=== PATIENT | male | born 1975 ===

== ENCOUNTER 2018-10-03 19:53 | Observation (INO) | payer OTHER ==
[2018-10-03] MEDS ORDERED: Sodium Chloride 0.9% 1,000 ML IV STA (20:31)
[2018-10-03 21:09] LABS: BASO # 0.03 K/mm3 (0.0-2.0); BASO % 0.3 % (0.0-3.0); EOS % 0.2 % (1.5-5.0); GRAN # 6.72 (1.4-6.5); GRAN % 74.7 % (50.0-68.0); HEMOGLOBIN 15.7 g/dL (14.0-18.0); LYMPH # 1.4 (1.2-3.4); LYMPH % 15.1 % (22.0-35.0); MEAN CELL VOLUME 87.4 fl (80.0-105.0); MEAN CORPUSCULAR HEMOGLOBIN 30.1 pg (25.0-35.0); MEAN CORPUSCULAR HGB CONC 34.4 g/dl (31.0-37.0); MEAN PLATELET VOLUME 10.2 fl (7.0-11.0); MONO # 0.9 (0.1-0.6); MONO % 9.7 % (1.0-6.0); RBC 5.22 10^6/uL (3.5-6.1); RED CELL DISTRIBUTION WIDTH 12.7 % (11.5-14.5)
[2018-10-03 21:16] LABS: ALB/GLOB RATIO 1.2 (1.1-1.8); ALBUMIN 4.3 g/dL (3.0-4.8); ALT/SGPT 29 U/L (7-56); AST/SGOT 33 U/L (17-59); BLOOD UREA NITROGEN 13 mg/dL (7-21); CALCIUM 9.4 mg/dL (8.4-10.5); GFR NON-AFRICAN AMERICAN > 60; LIPASE 36 U/L (23-300)
[2018-10-03 21:18] LABS: INR 1.19; PARTIAL THROMBOPLASTIN TIME 30.6 Seconds (25.1-36.5); PROTHROMBIN TIME 13.6 SECONDS (9.4-12.5)
[2018-10-03] MEDS ORDERED: Iohexol 350 MG/100 ML VIAL ONE (21:47)
--- NOTE | 2018-10-03 22:00 | ED PDOC ---
Arrival/HPI - General Historian: Patient - History of Present Illness Narrative History of Present Illness (Text): 10/03/18 21:57 43-year-old male presents today with a 2-day history of nausea vomiting and diarrhea with severe lower abdominal pain. Patient states the pain is int ermittent and sharp and localized to the left lower quadrant of the abdomen. Patient with subjective fevers at home. Patient states he has not been able to eat or drink due to the nausea and vomiting. Patient denies dizziness or weakness. No chest pain or shortness of breath. He denies any urinary symptoms. Denies testicular pain. Patient denies sick contacts. Patient describes a cramping sensation to the left flank. Patient states he is noticed bright red blood per rectum. Time/Duration: Other (2 days) Symptom Onset: Sudden Symptom Course: Intermittent Quality: Stabbing, Cramping Severity Level: Moderate <Verna Kincaid - Last Filed: 10/04/18 01:28> <Gabriel Hernandez - Last Filed: 10/04/18 01:30> - General Chief Complaint: Abdominal Pain Time Seen by Provider: 10/03/18 20:01 Past Medical History - Provider Review Nursing Documentation Reviewed: Yes - Travel History Have you recently traveled outside [place] w/in the past 3 mons?: No - Cardiac Hx Cardiac Disorders: No - Pulmonary Hx Respiratory Disorders: No - Neurological Hx Neurological Disorder: No - HEENT Hx HEENT Disorder: No - Renal Hx Renal Disorder: No - Endocrine/Metabolic Hx Endocrine Disorders: No - Hematological/Oncological Hx Blood Disorders: No - Integumentary Hx Dermatological Disorder: No - Musculoskeletal/Rheumatological Hx Musculoskeletal Disorders: No - Gastrointestinal Hx Gastrointestinal Disorders: No - Genitourinary/Gynecological Hx Genitourinary Disorders: No - Psychiatric Hx Psychophysiologic Disorder: Yes Hx Anxiety: Yes Hx Substance Use: Yes <Verna Kincaid - Last Filed: 10/04/18 01:28> Family/Social History - Physician Review Nursing Documentation Reviewed: Yes Family/Social History: Unknown Family HX Smoking Status: Never Smoked Hx Alcohol Use: No Hx Substance Use: Yes Substance used: Occasional Marijuana <Verna Kincaid - Last Filed: 10/04/18 01:28> Allergies/Home Meds <Verna Kincaid - Last Filed: 10/04/18 01:28> <Gabriel Hernandez Filed: 10/04/18 01:30> Allergies/Adverse Reactions: Allergies No Known Allergies Allergy (Verified 10/03/18 20:09) Home Medications: Home Meds Medication Instructions Recorded Confirmed No Known Home Med 10/03/18 10/03/18 Review of Systems - Review of Systems Constitutional: Fevers. absent: Fatigue Respiratory: absent: SOB, Cough Cardiovascular: absent: Chest Pain, Palpitations Gastrointestinal: Abdominal Pain, Diarrhea, Nausea, Vomiting. absent: Constipation Genitourinary Male: absent: Dysuria, Frequency, Hematuria Musculoskeletal: Back Pain. absent: Arthralgias, Neck Pain Skin: absent: Rash, Pruritis Neurological: absent: Headache, Dizziness Psychiatric: absent: Anxiety, Depression <Verna Kincaid Filed: 10/04/18 01:28> Physical Exam Vital Signs Reviewed: Yes Vital Signs Temp Pulse Resp BP Pulse Ox 10/03/18 20:10 98.4 F 89 18 122/81 98 Temperature: Afebrile Blood Pressure: Normal Pulse: Regular Respiratory Rate: Normal Appearance: Positive for: Well-Appearing, Non-Toxic, Comfortable Pain Distress: None Mental Status: Positive for: Alert and Oriented X 3 - Systems Exam Head: Present: Atraumatic Mouth: Present: Moist Mucous Membranes Neck: Present: Normal Range of Motion Respiratory/Chest: Present: Clear to Auscultation, Good Air Exchange. No: Respiratory Distress, Accessory Muscle Use Cardiovascular: Present: Regular Rate and Rhythm, Normal S1, S2. No: Murmurs Abdomen: Present: Tenderness (+ llq and rlq tenderness. ), Guarding. No: Distention, Peritoneal Signs Rectal: Present: Occult Blood, Normal Rectal Tone. No: Rectal Tenderness, Gross Blood, Melena, Fissures Back: Present: Normal Inspection. No: Midline Tenderness, Paraspinal Tenderness Upper Extremity: Present: Normal ROM Lower Extremity: Present: Normal ROM Neurological: Present: GCS=15, Speech Normal Skin: Present: Warm, Dry, Normal Color. No: Rashes Psychiatric: Present: Alert, Oriented x 3 <Verna Kincaid Filed: 10/04/18 01:28> Vital Signs Temp Pulse Resp BP Pulse Ox 10/03/18 20:10 98.4 F 89 18 122/81 98 <Gabriel Hernandez Filed: 10/04/18 01:30> Medical Decision Making ED Course and Treatment: 10/03/18 22:01 Patient is nontoxic well appearing with stable vital signs presenting with abdominal pain, nausea/vomiting/diarrhea and heme positive stools. CBC wnl CMP wnl Lipase wnl CAT scan: FINDINGS: LUNG BASES: The lung bases appear clear. No pleural effusions are seen. LIVER: Unremarkable. GALLBLADDER AND BILE DUCTS: The gallbladder appears within normal limits. No radioopaque gallstones are seen. No biliary ductal dilatation is evident. PANCREAS: Unremarkable. SPLEEN: Unremarkable. ADRENAL GLANDS: Unremarkable. KIDNEYS, URETERS, AND BLADDER: The kidneys appear within normal limits. There is no hydronephrosis or hydroureter. No urinary calculi are seen. STOMACH AND BOWEL: Thick walled fluid filled duodenum and loops of jejunum as well as ileum compatible with enteritis. Thick walled fluid filled colon is noted with involvement of all segments compatible with diffuse pancolitis. Infectious and inflammatory etiologies are considered. APPENDIX: No evidence of acute appendicitis on CT examination. PERITONEUM: No free fluid. No free air. LYMPH NODES: No lymphadenopathy is evident. REPRODUCTIVE: Unremarkable as visualized. VASCULATURE: No evidence of abdominal aortic aneurysm. BONES: No aggressive appearing osseous lesion. No acute osseous pathology evident. MISCELLANEOUS: Small fat-containing umbilical hernia is noted. Small amount of fluid in the pelvis. IMPRESSION: 1. Enterocolitis. Infectious and inflammatory etiologies are considered. 2. Small fat-containing umbilical hernia is noted. 3. Small amount of fluid in the pelvis. 10/03/18 23:43 pt with intermittent lower abdominal cramping with pancolitis on CT with left shift. blood cultures pending pt started on rocephin and flagyl. case discussed with dr. burns. accepts admission all results discussed with patient in depth; impression: pancolitis, heme positive stools admit meds/surg - Lab Interpretations Lab Results: 10/03/18 20:59 10/03/18 20:59 Lab Results 10/03/18 20:59: WBC 9.0, RBC 5.22, Hgb 15.7, Hct 45.6, MCV 87.4, MCH 30.1, MCHC 34.4, RDW 12.7, Plt Count 187, MPV 10.2, Gran % 74.7 H, Lymph % (Auto) 15.1 L, Barry % (Auto) 9.7 H, Eos % (Auto) 0.2 L, Baso % (Auto) 0.3, Gran # 6.72 H, Lymph # (Auto) 1.4, [place] # (Auto) 0.9 H, Eos # (Auto) 0.0, Baso # (Auto) 0.03 10/03/18 20:59: Sodium 136, Potassium 3.6, Chloride 103, Carbon Dioxide 25, Ani on Gap 13, BUN 13, Creatinine 0.9, Est GFR ( Amer) > 60, Est GFR (Non-Af Amer) > 60, Random Glucose 92, Calcium 9.4, Total Bilirubin 0.6, AST 33, ALT 29, Alkaline Phosphatase 68, Total Protein 7.9, Albumin 4.3, Globulin 3.6, Albumin/Globulin Ratio 1.2, Lipase 36 10/03/18 20:59: PT 13.6 H, INR 1.19, APTT 30.6 - RAD Interpretation Radiology Orders: 10/03/18 20:30 ABD & PELVIS IV CONTRAST ONLY [CT] Stat - Medication Orders Current Medication Orders: Discontinued Medications Sodium Chloride (Sodium Chloride 0.9%) 1,000 mls @ 999 mls/hr IV .Q1H1M STA Stop: 10/03/18 21:31 Last Admin: 10/03/18 21:03 Dose: 999 mls/hr eMAR Start Stop Document 10/03/18 21:03 EQ (Rec: 10/03/18 21:03 EQ [id number]) Intravenous Solution Start Date 10/03/18 Start Time 21:03 <Verna Kincaid - Last Filed: 10/04/18 01:28> - Lab Interpretations Lab Results: 10/03/18 20:59 10/03/18 20:59 Lab Results 10/03/18 21:00: Blood Type Pending, Antibody Screen Pending, BBK History Checked No verified bt 10/03/18 20:59: WBC 9.0, RBC 5.22, Hgb 15.7, Hct 45.6, MCV 87.4, MCH 30.1, MCHC 34.4, RDW 12.7, Plt Count 187, MPV 10.2, Gran % 74.7 H, Lymph % (Auto) 15.1 L, [place] % (Auto) 9.7 H, Eos % (Auto) 0.2 L, Baso % (Auto) 0.3, Gran # 6.72 H, Lymph # (Auto) 1.4, [place] # (Auto) 0.9 H, Eos # (Auto) 0.0, Baso # (Auto) 0.03 10/03/18 20:59: Sodium 136, Potassium 3.6, Chloride 103, Carbon Dioxide 25, Anion Gap 13, BUN 13, Creatinine 0.9, Est GFR ( Amer) > 60, Est GFR (Non- Af Amer) > 60, Random Glucose 92, Calcium 9.4, Total Bilirubin 0.6, AST 33, ALT 29, Alkaline Phosphatase 68, Total Protein 7.9, Albumin 4.3, Globulin 3.6, Albumin/Globulin Ratio 1.2, Lipase 36 10/03/18 20:59: PT 13.6 H, INR 1.19, APTT 30.6 - RAD Interpretation Radiology Orders: 10/03/18 20:30 ABD & PELVIS IV CONTRAST ONLY [CT] Stat - Medication Orders Current Medication Orders: Discontinued Medications Sodium Chloride (Sodium Chloride 0.9%) 1,000 mls @ 999 mls/hr IV .Q1H1M STA Stop: 10/03/18 21:31 Last Admin: 10/03/18 21:03 Dose: 999 mls/hr eMAR Start Stop Document 10/03/18 21:03 EQ (Rec: 10/03/18 21:03 EQ [id number]) Intravenous Solution Start Date 10/03/18 Start Time 21:03 <Gabriel Hernandez - Last Filed: 10/04/18 01:30> - PA / NITRO WORKER / Resident Statement ELENI has reviewed & agrees with the documentation as recorded. ELENI has examined the patient and agrees with the treatment plan. <Gabriel Hernandez - Last Filed: 10/04/18 01:30> Disposition/Present on Arrival - Present on Arrival Any Indicators Present on Arrival: No History of DVT/PE: No History of Uncontrolled Diabetes: No Urinary Catheter: No History of Decub. Ulcer: No History Surgical Site Infection Following: None - Disposition Have Diagnosis and Disposition been Completed?: Yes Disposition Time: 22:45 Patient Plan: Observation <Verna Kincaid - Last Filed: 10/04/18 01:28> <Gabriel Hernandez - Last Filed: 10/04/18 01:30> - Disposition Diagnosis: Pancolitis, Heme + stool Disposition: HOSPITALIZED Patient Problems: Current Active Problems Problem Status Onset Heme + stool Acute Pancolitis Acute Condition: FAIR
[2018-10-04] MEDS ORDERED: cefTRIAXone 1 gm 1 GM/100 ML BAG IVPB STA (00:24)
[2018-10-04] MEDS ORDERED: metroNIDAZOLE IV 500 mg/100 ml 500 MG/100 ML BAG IVPB STA ×2 (00:24→00:58)
[2018-10-04] MEDS ORDERED: Morphine 2 mg/ml ISec IVP PRN (01:12)
--- NOTE | 2018-10-04 01:35 | CP.PCM.HP ---
<Akshat Arias - Last Filed: 10/04/18 05:58> History of Present Illness - History of Present Illness History of Present Illness: Akshat Arias, PGY1 Hospital H&P This is a 43 year old male with PMH of anxiety presenting to the hospital for 2 day history of abdominal pain. Pain is located in B/L lower abdominal area, rated 10/10 at worst, sharp, radiates to the legs, associated with subjective fever, chills, nausea, several episodes of non bloody vomiting and 3 episodes of bloody diarrhea. He says blood is bright blood and he noticed when wiping. Patient denies exacerbating and alleviating factors. He denies having similar symptoms in the past. Last bowel movement was before arrival to ED. Last meal was oatmeal and turkey sandwhich on previous afternoon. He admits to recent increase in stress at work. He denies any rectal trauma. He also denies CP, SOB, back pain, headaches, cough, numbness, tingling, swelling, hematemesis, urinary complaints, recent sickness, sick contacts at home, trauma, and lifestyle change including diet and weight. 12 point ROS noted here, otherwise unremarkable. Patient returned from trip in [place] during last week of July. PMD: none PMH: anxiety Med: unknown anxiety medication, takes as needed on rare occasions SH: denies smoking and drinking. Admits to occasional marijuana use. Sx: denies surgeries All: NKDA FH: DM. Denies FH of colon cancer, ulcerative colitis, Crohn's Present on Admission - Present on Admission Any Indicators Present on Admission: No Past Patient History - Past Social History Smoking Status: Never Smoked - CARDIAC Hx Cardiac Disorders: No - PULMONARY Hx Respiratory Disorders: No - NEUROLOGICAL Hx Neurological Disorder: No - HEENT Hx HEENT Problems: No - RENAL Hx Chronic Kidney Disease: No - ENDOCRINE/METABOLIC Hx Endocrine Disorders: No - HEMATOLOGICAL/ONCOLOGICAL Hx Blood Disorders: No - INTEGUMENTARY Hx Dermatological Problems: No - MUSCULOSKELETAL/RHEUMATOLOGICAL Hx Musculoskeletal Disorders: No - GASTROINTESTINAL Hx Gastrointestinal Disorders: No - GENITOURINARY/GYNECOLOGICAL Hx Genitourinary Disorders: No - PSYCHIATRIC Hx Psychophysiologic Disorder: Yes Hx Anxiety: Yes Hx Substance Use: Yes - SURGICAL HISTORY Hx Surgeries: No Meds Allergies/Adverse Reactions: Allergies Allergy/AdvReac Type Severity Reaction Status Date / Time No Known Allergies Allergy Verified 10/03/18 20:09 Physical Exam - Constitutional Appears: No Acute Distress - Head Exam Head Exam: ATRAUMATIC, NORMAL INSPECTION - Eye Exam Eye Exam: EOMI Pupil Exam: PERRL - ENT Exam ENT Exam: Mucous Membranes Dry - Respiratory Exam Respiratory Exam: Clear to Auscultation Bilateral, NORMAL BREATHING PATTERN. absent: Accessory Muscle Use, Wheezes, Respiratory Distress - Cardiovascular Exam Cardiovascular Exam: REGULAR RHYTHM, +S1, +S2. absent: Tachycardia - GI/Abdominal Exam GI & Abdominal Exam: Normal Bowel Sounds, Soft. absent: Firm, Guarding Additional comments: LLQ tenderness appreciated to deep palpation. Cruz, rovsing, obturator sign's are negative. - Rectal Exam Additional comments: FOBT positive for blood. Rectal exam does not reveal any masses or lesions - Extremities Exam Extremities exam: Positive for: normal inspection, pedal pulses present. Negative for: calf tenderness - Back Exam Back exam: NORMAL INSPECTION. absent: CVA tenderness (L), CVA tenderness (R) - Neurological Exam Neurological exam: Alert, Oriented x3 - Skin Skin Exam: Normal Color, Warm Results - Vital Signs Recent Vital Signs: Last Vital Signs Temp 98.9 F 10/04/18 00:04 Pulse 69 10/04/18 00:04 Resp 18 10/04/18 00:04 BP 129/80 10/04/18 00:04 Pulse Ox 100 10/04/18 00:04 - Labs Result Diagrams: 10/03/18 20:59 10/03/18 20:59 Labs: Laboratory Results - last 24 hr 10/03/18 10/03/18 10/03/18 20:59 20:59 20:59 WBC 9.0 RBC 5.22 Hgb 15.7 Hct 45.6 MCV 87.4 MCH 30.1 MCHC 34.4 RDW 12.7 Plt Count 187 MPV 10.2 Gran % 74.7 H Lymph % (Auto) 15.1 L [place] % (Auto) 9.7 H Eos % (Auto) 0.2 L Baso % (Auto) 0.3 Gran # 6.72 H Lymph # (Auto) 1.4 [place] # (Auto) 0.9 H Eos # (Auto) 0.0 Baso # (Auto) 0.03 PT 13.6 H INR 1.19 APTT 30.6 Sodium 136 Potassium 3.6 Chloride 103 Carbon Dioxide 25 Anion Gap 13 BUN 13 Creatinine 0.9 Est GFR ( Amer) > 60 Est GFR (Non-Af Amer) > 60 Random Glucose 92 Calcium 9.4 Total Bilirubin 0.6 AST 33 ALT 29 Alkaline Phosphatase 68 Total Protein 7.9 Albumin 4.3 Globulin 3.6 Albumin/Globulin Ratio 1.2 Lipase 36 Blood Type Antibody Screen BBK History Checked 10/03/18 21:00 WBC RBC Hgb Hct MCV MCH MCHC RDW Plt Count MPV Gran % Lymph % (Auto) [place] % (Auto) Eos % (Auto) Baso % (Auto) Gran # Lymph # (Auto) [place] # (Auto) Eos # (Auto) Baso # (Auto) PT INR APTT Sodium Potassium Chloride Carbon Dioxide Anion Gap BUN Creatinine Est GFR ( Amer) Est GFR (Non-Af Amer) Random Glucose Calcium Total Bilirubin AST ALT Alkaline Phosphatase Total Protein Albumin Globulin Albumin/Globulin Ratio Lipase Blood Type O POSITIVE Antibody Screen Negative BBK History Checked No verified bt Assessment & Plan - Assessment and Plan (Free Text) Assessment: This is a 43 year old male with PMH of anxiety presenting to the hospital for 2 day history of abdominal pain. Plan: Abdominal pain -CTAP showed pancolitis. F/u official read -working up infectious vs inflammatory etiology -afebrile, WBC umremarkable with granulocyte shift -procalc pending -blood, stool culture pending -ova/parasite, lactoferrin, fecal leukocytes pending -flagyl, rocephin day 1 -NS 125 -ESR, CRP pending -p-ANCA, ASCA pending (IBD serology) -zofran prn, morphine prn -vitals q4 -GI on consult, Dr. Vasquez PPX/Diet -SCD and pepcid -NPO Patient seen and case discussed with attending, Dr. Roach <Jaclyn Roach - Last Filed: 10/04/18 19:04> Results - Vital Signs Recent Vital Signs: Last Vital Signs Temp 98 F 10/04/18 15:53 Pulse 69 10/04/18 15:53 Resp 16 10/04/18 15:53 BP 108/62 10/04/18 15:53 Pulse Ox 99 10/04/18 15:53 - Labs Result Diagrams: 10/04/18 07:00 10/04/18 07:00 Labs: Laboratory Results - last 24 hr 10/03/18 10/03/18 10/03/18 20:59 20:59 20:59 WBC 9.0 RBC 5.22 Hgb 15.7 Hct 45.6 MCV 87.4 MCH 30.1 MCHC 34.4 RDW 12.7 Plt Count 187 MPV 10.2 Gran % 74.7 H Lymph % (Auto) 15.1 L [place] % (Auto) 9.7 H Eos % (Auto) 0.2 L Baso % (Auto) 0.3 Gran # 6.72 H Lymph # (Auto) 1.4 [place] # (Auto) 0.9 H Eos # (Auto) 0.0 Baso # (Auto) 0.03 ESR PT 13.6 H INR 1.19 APTT 30.6 Sodium 136 Potassium 3.6 Chloride 103 Carbon Dioxide 25 Anion Gap 13 BUN 13 Creatinine 0.9 Est GFR ( Amer) > 60 Est GFR (Non-Af Amer) > 60 Random Glucose 92 Calcium 9.4 Total Bilirubin 0.6 AST 33 ALT 29 Alkaline Phosphatase 68 C-Reactive Protein Total Protein 7.9 Albumin 4.3 Globulin 3.6 Albumin/Globulin Ratio 1.2 Lipase 36 Procalcitonin TSH 3rd Generation Urine Color Urine Appearance Urine pH Ur Specific [place] Urine Protein Urine Glucose (UA) Urine Ketones Urine Blood Urine Nitrate Urine Bilirubin Urine Urobilinogen Ur Leukocyte Esterase Stool Occult Blood Blood Type Antibody Screen BBK History Checked 10/03/18 10/04/18 10/04/18 21:00 05:00 07:00 WBC 7.7 RBC 4.54 Hgb 13.1 L D Hct 39.9 L MCV 87.9 MCH 28.9 MCHC 32.8 RDW 12.8 Plt Count 170 MPV 10.3 Gran % 64.4 Lymph % (Auto) 21.6 L [place] % (Auto) 11.8 H Eos % (Auto) 1.8 Baso % (Auto) 0.4 Gran # 4.94 Lymph # (Auto) 1.7 [place] # (Auto) 0.9 H Eos # (Auto) 0.1 Baso # (Auto) 0.03 ESR 5 PT INR APTT Sodium Potassium Chloride Carbon Dioxide Anion Gap BUN Creatinine Est GFR ( Amer) Est GFR (Non-Af Amer) Random Glucose Calcium Total Bilirubin AST ALT Alkaline Phosphatase C-Reactive Protein Total Protein Albumin Globulin Albumin/Globulin Ratio Lipase Procalcitonin TSH 3rd Generation Urine Color Straw Urine Appearance Clear Urine pH 6.5 Ur Specific [place] <= 1.005 Urine Protein Negative Urine Glucose (UA) Negative Urine Ketones Negative Urine Blood Negative Urine Nitrate Negative Urine Bilirubin Negative Urine Urobilinogen 0.2 Ur Leukocyte Esterase Negative Stool Occult Blood Blood Type O POSITIVE Antibody Screen Negative BBK History Checked No verified bt 10/04/18 10/04/18 10/04/18 07:00 07:00 07:00 WBC RBC Hgb Hct MCV MCH MCHC RDW Plt Count MPV Gran % Lymph % (Auto) [place] % (Auto) Eos % (Auto) Baso % (Auto) Gran # Lymph # (Auto) [place] # (Auto) Eos # (Auto) Baso # (Auto) ESR PT INR APTT Sodium 137 Potassium 3.4 L Chloride 106 Carbon Dioxide 26 Anion Gap 8 L BUN 12 Creatinine 1.0 Est GFR ( Amer) > 60 Est GFR (Non-Af Amer) > 60 Random Glucose 83 Calcium 8.3 L Total Bilirubin 0.3 AST 29 ALT 31 Alkaline Phosphatase 53 C-Reactive Protein 30.60 H Total Protein 6.4 Albumin 3.3 Globulin 3.1 Albumin/Globulin Ratio 1.1 Lipase Procalcitonin 0.42 TSH 3rd Generation 5.93 H Urine Color Urine Appearance Urine pH Ur Specific [place] Urine Protein Urine Glucose (UA) Urine Ketones Urine Blood Urine Nitrate Urine Bilirubin Urine Urobilinogen Ur Leukocyte Esterase Stool Occult Blood Blood Type Antibody Screen BBK History Checked 10/04/18 14:43 WBC RBC Hgb Hct MCV MCH MCHC RDW Plt Count MPV Gran % Lymph % (Auto) [place] % (Auto) Eos % (Auto) Baso % (Auto) Gran # Lymph # (Auto) [place] # (Auto) Eos # (Auto) Baso # (Auto) ESR PT INR APTT Sodium Potassium Chloride Carbon Dioxide Anion Gap BUN Creatinine Est GFR ( Amer) Est GFR (Non-Af Amer) Random Glucose Calcium Total Bilirubin AST ALT Alkaline Phosphatase C-Reactive Protein Total Protein Albumin Globulin Albumin/Globulin Ratio Lipase Procalcitonin TSH 3rd Generation Urine Color Urine Appearance Urine pH Ur Specific [place] Urine Protein Urine Glucose (UA) Urine Ketones Urine Blood Urine Nitrate Urine Bilirubin Urine Urobilinogen Ur Leukocyte Esterase Stool Occult Blood Positive H Blood Type Antibody Screen BBK History Checked Attending/Attestation - Attestation I have personally seen and examined this patient.: Yes I have fully participated in the care of the patient.: Yes I have reviewed all pertinent clinical information: Yes
[2018-10-04] MEDS: Sodium Chloride 0.9% 1,000 ML IV SCH ×2 (02:10→17:30)
[2018-10-04 05:53] LABS: PH,URINE 6.5 (4.7-8.0); URINE BILIRUBIN NEGATIVE (NEGATIVE); URINE BLOOD NEGATIVE (NEGATIVE); URINE GLUCOSE (UA) NEGATIVE (NEGATIVE); URINE LEUKOCYTE ESTERASE NEGATIVE Leu/uL (NEGATIVE); URINE PROTEIN NEGATIVE mg/dL (<30 mg/dL); URINE UROBILINOGEN 0.2 E.U./dL (<1 E.U./dL)
[2018-10-04 05:58] LABS: URINE APPEARANCE CLEAR (CLEAR); URINE COLOR STRAW (YELLOW)
[2018-10-04 07:26] LABS: BASO # 0.03 K/mm3 (0.0-2.0); BASO % 0.4 % (0.0-3.0); EOS # 0.1 (0.0-0.7); EOS % 1.8 % (1.5-5.0); GRAN # 4.94 (1.4-6.5); GRAN % 64.4 % (50.0-68.0); LYMPH # 1.7 (1.2-3.4); LYMPH % 21.6 % (22.0-35.0); MEAN CELL VOLUME 87.9 fl (80.0-105.0); MEAN CORPUSCULAR HEMOGLOBIN 28.9 pg (25.0-35.0); MEAN CORPUSCULAR HGB CONC 32.8 g/dl (31.0-37.0); MEAN PLATELET VOLUME 10.3 fl (7.0-11.0); MONO # 0.9 (0.1-0.6); MONO % 11.8 % (1.0-6.0); RBC 4.54 10^6/uL (3.5-6.1); RED CELL DISTRIBUTION WIDTH 12.8 % (11.5-14.5); WHITE BLOOD COUNT 7.7 10^3/uL (4.5-11.0)
[2018-10-04 07:27] LABS: HEMOGLOBIN 13.1 g/dL (14.0-18.0)
[2018-10-04 07:53] LABS: ALB/GLOB RATIO 1.1 (1.1-1.8); ALBUMIN 3.3 g/dL (3.0-4.8); ALT/SGPT 31 U/L (7-56); AST/SGOT 29 U/L (17-59); BLOOD UREA NITROGEN 12 mg/dL (7-21); CALCIUM 8.3 mg/dL (8.4-10.5); GFR NON-AFRICAN AMERICAN > 60
--- NOTE | 2018-10-04 10:08 | CT ---
Date of service: 10/03/2018 PROCEDURE: CT Abdomen and Pelvis with contrast HISTORY: abd pain COMPARISON: None available. TECHNIQUE: CT scan of the abdomen and pelvis was performed after administration of intravenous contrast. Oral contrast was not administered. Coronal and sagittal reformatted images were obtained. Contrast dose: Radiation dose: Total exam DLP = 257.67 mGy-cm. This CT exam was performed using one or more of the following dose reduction techniques: Automated exposure control, adjustment of the mA and/or kV according to patient size, and/or use of iterative reconstruction technique. FINDINGS: LOWER THORAX: The visualized lungs are clear. LIVER: Normal in size with homogeneous enhancement. No gross lesion or ductal dilatation. GALLBLADDER AND BILE DUCTS: Well distended. No calcified gallstones, wall thickening or pericholecystic fluid. PANCREAS: Normal in size with homogeneous enhancement. No gross lesion or ductal dilatation. SPLEEN: Normal in size and appearance. ADRENALS: No discrete nodule. KIDNEYS AND URETERS: Normal in size with homogeneous enhancement. No hydronephrosis. No solid mass. VASCULATURE: No aortic aneurysm. BOWEL: Evaluation of the bowel is limited in the absence of oral contrast. The proximal small bowel loops are normal in caliber. There are fluid-filled mildly dilated distal small bowel loops. There is also fluid in the colon with a mild circumferential mural thickening. No bowel obstruction. The colon is grossly normal in appearance. No bowel wall thickening or obstruction. APPENDIX: Normal appendix. PERITONEUM: There is small amount of free fluid in the pelvis. No free air. LYMPH NODES: No enlarged lymph nodes. BLADDER: Well distended and normal in appearance. REPRODUCTIVE: The uterus is normal in size. BONES: No acute fracture. Within normal limits for the patient's age. OTHER FINDINGS: None. IMPRESSION: Acute nonspecific infectious/inflammatory enterocolitis. No bowel obstruction. A preliminary report was provided by [employer].
[2018-10-04] MEDS: cefTRIAXone 1 gm 1 GM/100 ML BAG IVPB SCH (10:38)
[2018-10-04] MEDS: metroNIDAZOLE IV 500 mg/100 ml 500 MG/100 ML BAG IVPB SCH ×3 (10:39→22:15)
[2018-10-04] MEDS: Famotidine 20mg/50ml 20 MG/50 ML BAG IVPB SCH ×2 (10:42→22:15)
--- NOTE | 2018-10-04 15:59 | CP.PCM.CON ---
<SanjuanabrendonCory dugan - Last Filed: 10/04/18 16:15> History of Present Illness - History of Present Illness History of Present Illness: PGY6 GI Fellow Consult Note Patient is a 43yo male with PMHx significant for anxiety who presented to the ED with complaint of abdominal pain and diarrhea. Patient noted cramping abdominal pain while at work on Monday evening followed by the development of watery brown stool. Patient had numerous episodes of diarrhea to the point where he was suffering with episodes of fecal incontinence. After >20 episodes of diarrhea, he noted a bloody bowel movement which prompted him to come to the ED for evaluation. The patient does admit to alternating fevers and chills and nausea. No prior episodes similar to this in the past. Admits to recent travel to [place] but otherwise denies any travel. No sick contacts or other recent illnesses. 12 system ROS performed and negative except where stated PMHx: See HPI PSHx: Discussed with patient and he denies prior surgery FHx: Discussed with patient and he denies significant family history Social: Denies tobacco, EtOH or illicit drug use Endo: No prior endoscopic evaluations Past Patient History - Past Social History Smoking Status: Never Smoked - CARDIAC Hx Cardiac Disorders: No - PULMONARY Hx Respiratory Disorders: No - NEUROLOGICAL Hx Neurological Disorder: No - HEENT Hx HEENT Problems: No - RENAL Hx Chronic Kidney Disease: No - ENDOCRINE/METABOLIC Hx Endocrine Disorders: No - HEMATOLOGICAL/ONCOLOGICAL Hx Blood Disorders: No - INTEGUMENTARY Hx Dermatological Problems: No - MUSCULOSKELETAL/RHEUMATOLOGICAL Hx Musculoskeletal Disorders: No - GASTROINTESTINAL Hx Gastrointestinal Disorders: No - GENITOURINARY/GYNECOLOGICAL Hx Genitourinary Disorders: No - PSYCHIATRIC Hx Psychophysiologic Disorder: Yes Hx Anxiety: Yes Hx Substance Use: Yes - SURGICAL HISTORY Hx Surgeries: No Meds Allergies/Adverse Reactions: Allergies Allergy/AdvReac Type Severity Reaction Status Date / Time No Known Allergies Allergy Verified 10/03/18 20:09 - Medications Medications: Current Medications Metronidazole (Flagyl) 500 mg in 100 mls @ 100 mls/hr IVPB Q8 GREGORIO; Protocol Last Admin: 10/04/18 10:39 Dose: 100 mls/hr Famotidine (Pepcid 20mg/50ml Premix) 20 mg in 50 mls @ 100 mls/hr IVPB Q12 GREGORIO Last Admin: 10/04/18 10:42 Dose: 100 mls/hr Ceftriaxone Sodium (Rocephin 1 Gram Ivpb) 1 gm in 100 mls @ 100 mls/hr IVPB DAILY GREGORIO; Protocol Last Admin: 10/04/18 10:38 Dose: 100 mls/hr Sodium Chloride (Sodium Chloride 0.9%) 1,000 mls @ 125 mls/hr IV .Q8H GREGORIO Last Admin: 10/04/18 02:10 Dose: 125 mls/hr Morphine Sulfate (Morphine) 2 mg IVP Q4H PRN PRN Reason: Pain, severe (8-10) Last Admin: 10/04/18 02:14 Dose: 2 mg Ondansetron HCl (Zofran Inj) 4 mg IVP Q4H PRN PRN Reason: Nausea/Vomiting Physical Exam - Constitutional Appears: Non-toxic, No Acute Distress - Eye Exam Eye Exam: EOMI, PERRL - ENT Exam ENT Exam: Mucous Membranes Moist - Respiratory Exam Respiratory Exam: Clear to Auscultation Bilateral. absent: Rales, Rhonchi, Wheezes - Cardiovascular Exam Cardiovascular Exam: RRR, +S1, +S2 - GI/Abdominal Exam GI & Abdominal Exam: Normal Bowel Sounds, Soft. absent: Distended, Firm, Guarding, Hernia, Organomegaly, Rigid, Tenderness - Extremities Exam Extremities exam: Positive for: normal inspection. Negative for: pedal edema - Neurological Exam Neurological exam: Alert, Oriented x3 - Psychiatric Exam Psychiatric exam: Normal Affect, Normal Mood - Skin Skin Exam: Dry, Warm Results - Vital Signs Recent Vital Signs: Last Vital Signs Temp 98 F 10/04/18 15:53 Pulse 69 10/04/18 15:53 Resp 16 10/04/18 15:53 BP 108/62 10/04/18 15:53 Pulse Ox 99 10/04/18 15:53 - Labs Result Diagrams: 10/04/18 07:00 10/04/18 07:00 Labs: Laboratory Results - last 24 hr 10/03/18 10/03/18 10/03/18 20:59 20:59 20:59 WBC 9.0 RBC 5.22 Hgb 15.7 Hct 45.6 MCV 87.4 MCH 30.1 MCHC 34.4 RDW 12.7 Plt Count 187 MPV 10.2 Gran % 74.7 H Lymph % (Auto) 15.1 L Waller % (Auto) 9.7 H Eos % (Auto) 0.2 L Baso % (Auto) 0.3 Gran # 6.72 H Lymph # (Auto) 1.4 Waller # (Auto) 0.9 H Eos # (Auto) 0.0 Baso # (Auto) 0.03 ESR PT 13.6 H INR 1.19 APTT 30.6 Sodium 136 Potassium 3.6 Chloride 103 Carbon Dioxide 25 Anion Gap 13 BUN 13 Creatinine 0.9 Est GFR ( Amer) > 60 Est GFR (Non-Af Amer) > 60 Random Glucose 92 Calcium 9.4 Total Bilirubin 0.6 AST 33 ALT 29 Alkaline Phosphatase 68 Total Protein 7.9 Albumin 4.3 Globulin 3.6 Albumin/Globulin Ratio 1.2 Lipase 36 Procalcitonin TSH 3rd Generation Urine Color Urine Appearance Urine pH Ur Specific [place] Urine Protein Urine Glucose (UA) Urine Ketones Urine Blood Urine Nitrate Urine Bilirubin Urine Urobilinogen Ur Leukocyte Esterase Stool Occult Blood Blood Type Antibody Screen BBK History Checked 10/03/18 10/04/18 10/04/18 21:00 05:00 07:00 WBC 7.7 RBC 4.54 Hgb 13.1 L D Hct 39.9 L MCV 87.9 MCH 28.9 MCHC 32.8 RDW 12.8 Plt Count 170 MPV 10.3 Gran % 64.4 Lymph % (Auto) 21.6 L Waller % (Auto) 11.8 H Eos % (Auto) 1.8 Baso % (Auto) 0.4 Gran # 4.94 Lymph # (Auto) 1.7 Waller # (Auto) 0.9 H Eos # (Auto) 0.1 Baso # (Auto) 0.03 ESR 5 PT INR APTT Sodium Potassium Chloride Carbon Dioxide Anion Gap BUN Creatinine Est GFR ( Amer) Est GFR (Non-Af Amer) Random Glucose Calcium Total Bilirubin AST ALT Alkaline Phosphatase Total Protein Albumin Globulin Albumin/Globulin Ratio Lipase Procalcitonin TSH 3rd Generation Urine Color Straw Urine Appearance Clear Urine pH 6.5 Ur Specific [place] <= 1.005 Urine Protein Negative Urine Glucose (UA) Negative Urine Ketones Negative Urine Blood Negative Urine Nitrate Negative Urine Bilirubin Negative Urine Urobilinogen 0.2 Ur Leukocyte Esterase Negative Stool Occult Blood Blood Type O POSITIVE Antibody Screen Negative BBK History Checked No verified bt 10/04/18 10/04/18 10/04/18 07:00 07:00 07:00 WBC RBC Hgb Hct MCV MCH MCHC RDW Plt Count MPV Gran % Lymph % (Auto) Waller % (Auto) Eos % (Auto) Baso % (Auto) Gran # Lymph # (Auto) Waller # (Auto) Eos # (Auto) Baso # (Auto) ESR PT INR APTT Sodium 137 Potassium 3.4 L Chloride 106 Carbon Dioxide 26 Anion Gap 8 L BUN 12 Creatinine 1.0 Est GFR ( Amer) > 60 Est GFR (Non-Af Amer) > 60 Random Glucose 83 Calcium 8.3 L Total Bilirubin 0.3 AST 29 ALT 31 Alkaline Phosphatase 53 Total Protein 6.4 Albumin 3.3 Globulin 3.1 Albumin/Globulin Ratio 1.1 Lipase Procalcitonin 0.42 TSH 3rd Generation 5.93 H Urine Color Urine Appearance Urine pH Ur Specific [place] Urine Protein Urine Glucose (UA) Urine Ketones Urine Blood Urine Nitrate Urine Bilirubin Urine Urobilinogen Ur Leukocyte Esterase Stool Occult Blood Blood Type Antibody Screen BBK History Checked 10/04/18 14:43 WBC RBC Hgb Hct MCV MCH MCHC RDW Plt Count MPV Gran % Lymph % (Auto) Waller % (Auto) Eos % (Auto) Baso % (Auto) Gran # Lymph # (Auto) Waller # (Auto) Eos # (Auto) Baso # (Auto) ESR PT INR APTT Sodium Potassium Chloride Carbon Dioxide Anion Gap BUN Creatinine Est GFR ( Amer) Est GFR (Non-Af Amer) Random Glucose Calcium Total Bilirubin AST ALT Alkaline Phosphatase Total Protein Albumin Globulin Albumin/Globulin Ratio Lipase Procalcitonin TSH 3rd Generation Urine Color Urine Appearance Urine pH Ur Specific [place] Urine Protein Urine Glucose (UA) Urine Ketones Urine Blood Urine Nitrate Urine Bilirubin Urine Urobilinogen Ur Leukocyte Esterase Stool Occult Blood Positive H Blood Type Antibody Screen BBK History Checked Assessment & Plan - Assessment and Plan (Free Text) Assessment: Patient is a 43yo male with PMHx significant for anxiety who presented to the ED with complaint of abdominal pain and diarrhea -Acute enterocolitis Plan: -CT reviewed - evidence for dilated loops of small bowel and mural thickening in the colon c/w acute enterocolitis picture -Liquid diet and advance as tolerated -Check stool culture, Shigella and Salmonella -Ceftriaxone/Flagyl initiated by primary team -Monitor clinical course - Date & Time Date: 10/04/18 Time: 08:00 <Ratna Vasquez V - Last Filed: 10/04/18 23:53> Meds - Medications Medications: Current Medications Metronidazole (Flagyl) 500 mg in 100 mls @ 100 mls/hr IVPB Q8 GREGORIO; Protocol Last Admin: 10/04/18 22:15 Dose: 100 mls/hr Famotidine (Pepcid 20mg/50ml Premix) 20 mg in 50 mls @ 100 mls/hr IVPB Q12 GREGORIO Last Admin: 10/04/18 22:15 Dose: 100 mls/hr Ceftriaxone Sodium (Rocephin 1 Gram Ivpb) 1 gm in 100 mls @ 100 mls/hr IVPB DAILY GREGORIO; Protocol Last Admin: 10/04/18 10:38 Dose: 100 mls/hr Sodium Chloride (Sodium Chloride 0.9%) 1,000 mls @ 125 mls/hr IV .Q8H GREGORIO Last Admin: 10/04/18 17:30 Dose: 125 mls/hr Ondansetron HCl (Zofran Inj) 4 mg IVP Q4H PRN PRN Reason: Nausea/Vomiting Tramadol HCl (Ultram) 50 mg PO TID PRN PRN Reason: Pain, moderate (4-7) Results - Vital Signs Recent Vital Signs: Last Vital Signs Temp 98.2 F 10/04/18 21:59 Pulse 67 10/04/18 21:59 Resp 18 10/04/18 21:59 BP 118/72 10/04/18 21:59 Pulse Ox 100 10/04/18 21:59 - Labs Result Diagrams: 10/04/18 07:00 10/04/18 07:00 Labs: Laboratory Results - last 24 hr 10/04/18 10/04/18 10/04/18 05:00 07:00 07:00 WBC 7.7 RBC 4.54 Hgb 13.1 L D Hct 39.9 L MCV 87.9 MCH 28.9 MCHC 32.8 RDW 12.8 Plt Count 170 MPV 10.3 Gran % 64.4 Lymph % (Auto) 21.6 L Waller % (Auto) 11.8 H Eos % (Auto) 1.8 Baso % (Auto) 0.4 Gran # 4.94 Lymph # (Auto) 1.7 Waller # (Auto) 0.9 H Eos # (Auto) 0.1 Baso # (Auto) 0.03 ESR 5 Sodium 137 Potassium 3.4 L Chloride 106 Carbon Dioxide 26 Anion Gap 8 L BUN 12 Creatinine 1.0 Est GFR ( Amer) > 60 Est GFR (Non-Af Amer) > 60 Random Glucose 83 Calcium 8.3 L Total Bilirubin 0.3 AST 29 ALT 31 Alkaline Phosphatase 53 C-Reactive Protein 30.60 H Total Protein 6.4 Albumin 3.3 Globulin 3.1 Albumin/Globulin Ratio 1.1 Procalcitonin TSH 3rd Generation Urine Color Straw Urine Appearance Clear Urine pH 6.5 Ur Specific [place] <= 1.005 Urine Protein Negative Urine Glucose (UA) Negative Urine Ketones Negative Urine Blood Negative Urine Nitrate Negative Urine Bilirubin Negative Urine Urobilinogen 0.2 Ur Leukocyte Esterase Negative Stool Occult Blood Stool Leukocytes, Qual 10/04/18 10/04/18 10/04/18 07:00 07:00 14:30 WBC RBC Hgb Hct MCV MCH MCHC RDW Plt Count MPV Gran % Lymph % (Auto) Waller % (Auto) Eos % (Auto) Baso % (Auto) Gran # Lymph # (Auto) Waller # (Auto) Eos # (Auto) Baso # (Auto) ESR Sodium Potassium Chloride Carbon Dioxide Anion Gap BUN Creatinine Est GFR ( Amer) Est GFR (Non-Af Amer) Random Glucose Calcium Total Bilirubin AST ALT Alkaline Phosphatase C-Reactive Protein Total Protein Albumin Globulin Albumin/Globulin Ratio Procalcitonin 0.42 TSH 3rd Generation 5.93 H Urine Color Urine Appearance Urine pH Ur Specific [place] Urine Protein Urine Glucose (UA) Urine Ketones Urine Blood Urine Nitrate Urine Bilirubin Urine Urobilinogen Ur Leukocyte Esterase Stool Occult Blood Stool Leukocytes, Qual Positive H 10/04/18 14:43 WBC RBC Hgb Hct MCV MCH MCHC RDW Plt Count MPV Gran % Lymph % (Auto) Waller % (Auto) Eos % (Auto) Baso % (Auto) Gran # Lymph # (Auto) Waller # (Auto) Eos # (Auto) Baso # (Auto) ESR Sodium Potassium Chloride Carbon Dioxide Anion Gap BUN Creatinine Est GFR ( Amer) Est GFR (Non-Af Amer) Random Glucose Calcium Total Bilirubin AST ALT Alkaline Phosphatase C-Reactive Protein Total Protein Albumin Globulin Albumin/Globulin Ratio Procalcitonin TSH 3rd Generation Urine Color Urine Appearance Urine pH Ur Specific [place] Urine Protein Urine Glucose (UA) Urine Ketones Urine Blood Urine Nitrate Urine Bilirubin Urine Urobilinogen Ur Leukocyte Esterase Stool Occult Blood Positive H Stool Leukocytes, Qual Attending/Attestation - Attestation I have personally seen and examined this patient.: Yes I have fully participated in the care of the patient.: Yes I have reviewed all pertinent clinical information: Yes Notes (Text): This is an addendum to GI progress report dictated by the GI Fellow. The patient was seen and examined earlier. Medical records, lab studies, imagings were reviewed. Last 24 hours events reviewed. Agreed with the above treatment plan as outlined in GI Fellow 's notes with the addition of the following 10/04/18 23:52
--- NOTE | 2018-10-04 21:38 | CARD ---
APPROVED REPORT Date of service: 10/03/2018 EKG Measurement Heart [id number] <Conclusion> Normal sinus rhythm Normal ECG
[2018-10-05] MEDS: metroNIDAZOLE IV 500 mg/100 ml 500 MG/100 ML BAG IVPB SCH (05:04)
[2018-10-05 07:08] LABS: BASO # 0.04 K/mm3 (0.0-2.0); BASO % 0.5 % (0.0-3.0); EOS # 0.4 (0.0-0.7); EOS % 5.6 % (1.5-5.0); GRAN # 4.89 (1.4-6.5); GRAN % 61.8 % (50.0-68.0); HEMOGLOBIN 12.2 g/dL (14.0-18.0); LYMPH # 1.5 (1.2-3.4); LYMPH % 18.6 % (22.0-35.0); MEAN CELL VOLUME 87.9 fl (80.0-105.0); MEAN CORPUSCULAR HEMOGLOBIN 28.9 pg (25.0-35.0); MEAN CORPUSCULAR HGB CONC 32.9 g/dl (31.0-37.0); MEAN PLATELET VOLUME 10.2 fl (7.0-11.0); MONO # 1.1 (0.1-0.6); MONO % 13.5 % (1.0-6.0); RBC 4.22 10^6/uL (3.5-6.1); RED CELL DISTRIBUTION WIDTH 12.7 % (11.5-14.5); WHITE BLOOD COUNT 7.9 10^3/uL (4.5-11.0)
[2018-10-05 07:26] LABS: FREE T4 1.1 ng/dL (0.78-2.19); T4 5.5 ug/dL (5.5-11.0)
[2018-10-05 07:39] LABS: ALBUMIN 2.9 g/dL (3.0-4.8); ALT/SGPT 25 U/L (7-56); AST/SGOT 24 U/L (17-59); BLOOD UREA NITROGEN 8 mg/dL (7-21); CALCIUM 8.1 mg/dL (8.4-10.5); GFR NON-AFRICAN AMERICAN > 60
[2018-10-05 08:42] VITALS: BP 129/60; PULSE 59; RESP 20; TEMP 98.4; O2SAT 99
[2018-10-05] MEDS: cefTRIAXone 1 gm 1 GM/100 ML BAG IVPB SCH (09:51)
[2018-10-05] MEDS: Sodium Chloride 0.9% 1,000 ML IV SCH (09:51)
[2018-10-05] MEDS: Famotidine 20mg/50ml 20 MG/50 ML BAG IVPB SCH (09:51)
--- NOTE | 2018-10-05 10:08 | CP.PCM.PN ---
<Cory Carrero - Last Filed: 10/05/18 11:59> Subjective - Date & Time of Evaluation Date of Evaluation: 10/05/18 Time of Evaluation: 07:50 - Subjective Subjective: PGY6 GI Fellow Progress Note Patient seen and examined bedside this morning. The patient states that he is feeling better today. Eager to advance diet. No pain at this time. 4 episodes of loose stool since yesterday morning. 12 system ROS performed and negative except where stated Objective - Vital Signs/Intake and Output Vital Signs (last 24 hours): Temp Pulse Resp BP Pulse Ox 98.4 F 59 L 20 129/60 99 10/05/18 06:00 10/05/18 06:00 10/05/18 06:00 10/05/18 06:00 10/05/18 06:00 Intake and Output: 10/05/18 10/05/18 06:59 18:59 Intake Total 980 Balance 980 - Medications Medications: Current Medications Metronidazole (Flagyl) 500 mg in 100 mls @ 100 mls/hr IVPB Q8 GREGORIO; Protocol Last Admin: 10/05/18 05:04 Dose: 100 mls/hr Famotidine (Pepcid 20mg/50ml Premix) 20 mg in 50 mls @ 100 mls/hr IVPB Q12 GREGORIO Last Admin: 10/05/18 09:51 Dose: 100 mls/hr Ceftriaxone Sodium (Rocephin 1 Gram Ivpb) 1 gm in 100 mls @ 100 mls/hr IVPB DAILY GREGORIO; Protocol Last Admin: 10/05/18 09:51 Dose: 100 mls/hr Sodium Chloride (Sodium Chloride 0.9%) 1,000 mls @ 125 mls/hr IV .Q8H GREGORIO Last Admin: 10/05/18 09:51 Dose: 125 mls/hr Ondansetron HCl (Zofran Inj) 4 mg IVP Q4H PRN PRN Reason: Nausea/Vomiting Tramadol HCl (Ultram) 50 mg PO TID PRN PRN Reason: Pain, moderate (4-7) - Labs Labs: 10/05/18 06:30 10/05/18 06:30 PT 13.6 SECONDS (9.4-12.5) H 10/03/18 20:59 INR 1.19 10/03/18 20:59 APTT 30.6 Seconds (25.1-36.5) 10/03/18 20:59 - Constitutional Appears: Non-toxic, No Acute Distress - Eye Exam Eye Exam: EOMI, PERRL - ENT Exam ENT Exam: Mucous Membranes Moist - Respiratory Exam Respiratory Exam: Clear to Ausculation Bilateral. absent: Rales, Rhonchi, Wheezes - Cardiovascular Exam Cardiovascular Exam: RRR, +S1, +S2 - GI/Abdominal Exam GI & Abdominal Exam: Soft, Normal Bowel Sounds. absent: Distended, Firm, Guarding, Rigid, Tenderness, Organomegaly - Extremities Exam Extremities Exam: Normal Inspection. absent: Pedal Edema - Neurological Exam Neurological Exam: Alert, Awake, Oriented x3 - Psychiatric Exam Psychiatric exam: Normal Affect, Normal Mood - Skin Skin Exam: Dry, Warm Assessment and Plan - Assessment and Plan (Free Text) Assessment: Patient is a 43yo male with PMHx significant for anxiety who presented to the ED with complaint of abdominal pain and diarrhea -Acute enterocolitis Plan: -Clinically improved -Advance to bland, no citrus, lactose free diet -Stool studies pending -Ceftriaxone/Flagyl initiated by primary team -Monitor clinical course -Outpatient elective colonoscopy in 6-8 weeks <Ratna Vasquez V - Last Filed: 10/05/18 23:29> Objective - Vital Signs/Intake and Output Vital Signs (last 24 hours): Temp Pulse Resp BP Pulse Ox 98.4 F 59 L 20 129/60 99 10/05/18 06:00 10/05/18 06:00 10/05/18 06:00 10/05/18 06:00 10/05/18 06:00 - Labs Labs: 10/05/18 06:30 10/05/18 06:30 PT 13.6 SECONDS (9.4-12.5) H 10/03/18 20:59 INR 1.19 10/03/18 20:59 APTT 30.6 Seconds (25.1-36.5) 10/03/18 20:59 Attending/Attestation - Attestation I have personally seen and examined this patient.: Yes I have fully participated in the care of the patient.: Yes I have reviewed all pertinent clinical information, including history, physical exam and plan: Yes Notes (Text): This is an addendum to GI progress report dictated by the GI Fellow.The patient was seen and examined earlier. Medical records, lab studies, imagings were reviewed. Last 24 hours events reviewed. Agreed with the above treatment plan as outlined in GI Fellow 's notes with the addition of the following 10/05/18 23:29
--- NOTE | 2018-10-07 14:57 | CP.PCM.DIS ---
<Alex Sal - Last Filed: 10/07/18 14:45> Provider - Provider Date of Admission: 10/04/18 00:27 Attending physician: Chichi Figueroa MD Consults: 10/04/18 01:13 Gastroenterology Consult Routine Comment: Consulting Provider: Ratna Vasquez V Consulting Physician: Ratna Vasquez V Reason for Consult: bloody stool, abdominal pain Time Spent in preparation of Discharge (in minutes): 45 Diagnosis - Discharge Diagnosis (1) Heme + stool Status: Acute (2) Pancolitis Status: Acute Hospital Course - Lab Results Lab Results: Micro Results 10/04/18 01:00 Blood Blood Culture - Preliminary NO GROWTH AFTER 3 DAYS 10/04/18 00:30 Blood Blood Culture - Preliminary NO GROWTH AFTER 3 DAYS 10/04/18 14:30 Stool Stool Culture - Final NO SALMONELLA, SHIGELLA OR CAMPYLOBACTER ISOLATED. 10/04/18 12:20 Stool Ova and Parasite Concentrate Exam - Final Most Recent Lab Values WBC 7.9 10^3/uL (4.5-11.0) 10/05/18 06:30 RBC 4.22 10^6/uL (3.5-6.1) 10/05/18 06:30 Hgb 12.2 g/dL (14.0-18.0) L 10/05/18 06:30 Hct 37.1 % (42.0-52.0) L 10/05/18 06:30 MCV 87.9 fl (80.0-105.0) 10/05/18 06:30 MCH 28.9 pg (25.0-35.0) 10/05/18 06:30 MCHC 32.9 g/dl (31.0-37.0) 10/05/18 06:30 RDW 12.7 % (11.5-14.5) 10/05/18 06:30 Plt Count 163 10^3/uL (120.0-450.0) 10/05/18 06:30 MPV 10.2 fl (7.0-11.0) 10/05/18 06:30 Gran % 61.8 % (50.0-68.0) 10/05/18 06:30 Lymph % (Auto) 18.6 % (22.0-35.0) L 10/05/18 06:30 [place] % (Auto) 13.5 % (1.0-6.0) H 10/05/18 06:30 Eos % (Auto) 5.6 % (1.5-5.0) H 10/05/18 06:30 Baso % (Auto) 0.5 % (0.0-3.0) 10/05/18 06:30 Gran # 4.89 (1.4-6.5) 10/05/18 06:30 Lymph # (Auto) 1.5 (1.2-3.4) 10/05/18 06:30 [place] # (Auto) 1.1 (0.1-0.6) H 10/05/18 06:30 Eos # (Auto) 0.4 (0.0-0.7) 10/05/18 06:30 Baso # (Auto) 0.04 K/mm3 (0.0-2.0) 10/05/18 06:30 ESR 5 mm/hr (0.0-15.0) 10/04/18 07:00 PT 13.6 SECONDS (9.4-12.5) H 10/03/18 20:59 INR 1.19 10/03/18 20:59 APTT 30.6 Seconds (25.1-36.5) 10/03/18 20:59 Sodium 138 mmol/L (132-148) 10/05/18 06:30 Potassium 3.7 mmol/L (3.6-5.0) 10/05/18 06:30 Chloride 109 mmol/L (98-107) H 10/05/18 06:30 Carbon Dioxide 26 mmol/L (21-33) 10/05/18 06:30 Anion Gap 7 (10-20) L 10/05/18 06:30 BUN 8 mg/dL (7-21) 10/05/18 06:30 Creatinine 1.0 mg/dl (0.8-1.5) 10/05/18 06:30 Est GFR ( Amer) > 60 10/05/18 06:30 Est GFR (Non-Af Amer) > 60 10/05/18 06:30 Random Glucose 81 mg/dL (70-110) 10/05/18 06:30 Calcium 8.1 mg/dL (8.4-10.5) L 10/05/18 06:30 Total Bilirubin 0.2 mg/dL (0.2-1.3) 10/05/18 06:30 AST 24 U/L (17-59) 10/05/18 06:30 ALT 25 U/L (7-56) 10/05/18 06:30 Alkaline Phosphatase 48 U/L (38-126) 10/05/18 06:30 C-Reactive Protein 30.60 mg/L (0.0-9.9) H 10/04/18 07:00 Total Protein 5.7 g/dL (5.8-8.3) L 10/05/18 06:30 Albumin 2.9 g/dL (3.0-4.8) L 10/05/18 06:30 Globulin 2.8 gm/dL 10/05/18 06:30 Albumin/Globulin Ratio 1.0 (1.1-1.8) L 10/05/18 06:30 Lipase 36 U/L (23-300) 10/03/18 20:59 Procalcitonin 0.42 NG/ML (0.19-0.49) 10/04/18 07:00 Free T4 1.10 ng/dL (0.78-2.19) 10/05/18 06:30 Thyroxine (T4) 5.5 ug/dL (5.5-11.0) 10/05/18 06:30 Free T3 pg/mL 2.77 pg/mL (2.77-5.27) 10/05/18 06:30 TSH 3rd Generation 5.93 mIU/mL (0.46-4.68) H 10/04/18 07:00 Urine Color Straw (YELLOW) 10/04/18 05:00 Urine Appearance Clear (CLEAR) 10/04/18 05:00 Urine pH 6.5 (4.7-8.0) 10/04/18 05:00 Ur Specific [place] <= 1.005 (1.005-1.035) 10/04/18 05:00 Urine Protein Negative mg/dL (<30 mg/dL) 10/04/18 05:00 Urine Glucose (UA) Negative mg/dL (NEGATIVE) 10/04/18 05:00 Urine Ketones Negative mg/dL (NEGATIVE) 10/04/18 05:00 Urine Blood Negative (NEGATIVE) 10/04/18 05:00 Urine Nitrate Negative (NEGATIVE) 10/04/18 05:00 Urine Bilirubin Negative (NEGATIVE) 10/04/18 05:00 Urine Urobilinogen 0.2 E.U./dL (<1 E.U./dL) 10/04/18 05:00 Ur Leukocyte Esterase Negative Yo[place]/uL (NEGATIVE) 10/04/18 05:00 Stool Occult Blood Positive (NEGATIVE) H 10/04/18 14:43 Stool Leukocytes, Qual Positive (NEGATIVE) H 10/04/18 14:30 Proteinase 3 (PR3) <1.0 AI (<1.0) 10/04/18 07:00 Myeloperoxidase Ab <1.0 AI (<1.0) 10/04/18 07:00 HIV 1&2 Ag/Ab, 4th Gen Nonreactive (Nonreactive) 10/05/18 08:10 Blood Type O POSITIVE 10/03/18 21:00 Antibody Screen Negative 10/03/18 21:00 BBK History Checked No verified bt 10/03/18 21:00 - Hospital Course Hospital Course: Hospital Course: CT abd pelvis was done in ED which showed that the pt was having colitis. GI team consulted which did a stool shigella and salmonella and other stool work up. Pt was started on rocephin and flagyl for the colitis picture. Per GI will advance diet as tolerated. Pt had improved clinically and the pt had tolerated diet. GI team cleared pt for discharge and informed pt to f/u for elective colonoscopy within 6-8 wks. Medical plan for discharge was explained to the pt and the pt expressed understanding and agreement with medical plan. All of the pts questions and concerns were addressed prior to d/c. Pt was instructed to return to ED if the pts symptoms returned, worsened or if new symptoms began. Discharge Exam - Head Exam Head Exam: ATRAUMATIC, NORMAL INSPECTION, NORMOCEPHALIC - Eye Exam Eye Exam: EOMI, Normal appearance, PERRL - Respiratory Exam Respiratory Exam: Clear to PA & Lateral, NORMAL BREATHING PATTERN, UNREMARKABLE. absent: Accessory Muscle Use, Rales, Rhonchi, Wheezes, Respiratory Distress - Cardiovascular Exam Cardiovascular Exam: RRR, +S1, +S2. absent: Gallop, Rubs - GI/Abdominal Exam GI & Abdominal Exam: Normal Bowel Sounds, Soft, Unremarkable. absent: Distended, Firm, Guarding, Tenderness - Back Exam Back exam: NORMAL INSPECTION. absent: CVA tenderness (L), CVA tenderness (R) - Neurological Exam Neurological exam: Alert, Oriented x3 - Psychiatric Exam Psychiatric exam: Normal Affect, Normal Mood - Skin Skin Exam: Dry, Normal Color, Warm Discharge Plan - Discharge Medications Prescriptions: Ciprofloxacin [Cipro] 500 mg PO BID #20 tab metroNIDAZOLE [Flagyl] 500 mg PO Q8H #30 tab - Follow Up Plan Condition: FAIR Disposition: HOME/ ROUTINE Instructions: Inflammatory Bowel Disease, Coke Diet, Quitting Smoking, Flu Vaccine Additional Instructions: Please follow up with your primary care doctor in 3-5 days. If you do not have one, please call your insurance company to see who is covered. Please complete course of antibiotics. Please follow up with buhr mill operator, Dr. Vasquez as an outpatient for possible colonoscopy and endoscopy. Continue bland, low dairy diet and slowly advance as tolerated. If your symptoms worsen, please go to the nearest emergency department. Referrals: Ratna Vasquez MD [Medical Doctor] - <Chichi Figueroa - Last Filed: 10/07/18 15:09> Provider - Provider Date of Admission: 10/04/18 00:27 Attending physician: Chichi Figueroa MD Consults: 10/04/18 01:13 Gastroenterology Consult Routine Comment: Consulting Provider: Ratna Vasquez V Consulting Physician: Ratna Vasquez V Reason for Consult: bloody stool, abdominal pain Hospital Course - Lab Results Lab Results: Micro Results 10/04/18 01:00 Blood Blood Culture - Preliminary NO GROWTH AFTER 3 DAYS 10/04/18 00:30 Blood Blood Culture - Preliminary NO GROWTH AFTER 3 DAYS 10/04/18 14:30 Stool Stool Culture - Final NO SALMONELLA, SHIGELLA OR CAMPYLOBACTER ISOLATED. 10/04/18 12:20 Stool Ova and Parasite Concentrate Exam - Final Most Recent Lab Values WBC 7.9 10^3/uL (4.5-11.0) 10/05/18 06:30 RBC 4.22 10^6/uL (3.5-6.1) 10/05/18 06:30 Hgb 12.2 g/dL (14.0-18.0) L 10/05/18 06:30 Hct 37.1 % (42.0-52.0) L 10/05/18 06:30 MCV 87.9 fl (80.0-105.0) 10/05/18 06:30 MCH 28.9 pg (25.0-35.0) 10/05/18 06:30 MCHC 32.9 g/dl (31.0-37.0) 10/05/18 06:30 RDW 12.7 % (11.5-14.5) 10/05/18 06:30 Plt Count 163 10^3/uL (120.0-450.0) 10/05/18 06:30 MPV 10.2 fl (7.0-11.0) 10/05/18 06:30 Gran % 61.8 % (50.0-68.0) 10/05/18 06:30 Lymph % (Auto) 18.6 % (22.0-35.0) L 10/05/18 06:30 [place] % (Auto) 13.5 % (1.0-6.0) H 10/05/18 06:30 Eos % (Auto) 5.6 % (1.5-5.0) H 10/05/18 06:30 Baso % (Auto) 0.5 % (0.0-3.0) 10/05/18 06:30 Gran # 4.89 (1.4-6.5) 10/05/18 06:30 Lymph # (Auto) 1.5 (1.2-3.4) 10/05/18 06:30 [place] # (Auto) 1.1 (0.1-0.6) H 10/05/18 06:30 Eos # (Auto) 0.4 (0.0-0.7) 10/05/18 06:30 Baso # (Auto) 0.04 K/mm3 (0.0-2.0) 10/05/18 06:30 ESR 5 mm/hr (0.0-15.0) 10/04/18 07:00 PT 13.6 SECONDS (9.4-12.5) H 10/03/18 20:59 INR 1.19 10/03/18 20:59 APTT 30.6 Seconds (25.1-36.5) 10/03/18 20:59 Sodium 138 mmol/L (132-148) 10/05/18 06:30 Potassium 3.7 mmol/L (3.6-5.0) 10/05/18 06:30 Chloride 109 mmol/L (98-107) H 10/05/18 06:30 Carbon Dioxide 26 mmol/L (21-33) 10/05/18 06:30 Anion Gap 7 (10-20) L 10/05/18 06:30 BUN 8 mg/dL (7-21) 10/05/18 06:30 Creatinine 1.0 mg/dl (0.8-1.5) 10/05/18 06:30 Est GFR ( Amer) > 60 10/05/18 06:30 Est GFR (Non-Af Amer) > 60 10/05/18 06:30 Random Glucose 81 mg/dL (70-110) 10/05/18 06:30 Calcium 8.1 mg/dL (8.4-10.5) L 10/05/18 06:30 Total Bilirubin 0.2 mg/dL (0.2-1.3) 10/05/18 06:30 AST 24 U/L (17-59) 10/05/18 06:30 ALT 25 U/L (7-56) 10/05/18 06:30 Alkaline Phosphatase 48 U/L (38-126) 10/05/18 06:30 C-Reactive Protein 30.60 mg/L (0.0-9.9) H 10/04/18 07:00 Total Protein 5.7 g/dL (5.8-8.3) L 10/05/18 06:30 Albumin 2.9 g/dL (3.0-4.8) L 10/05/18 06:30 Globulin 2.8 gm/dL 10/05/18 06:30 Albumin/Globulin Ratio 1.0 (1.1-1.8) L 10/05/18 06:30 Lipase 36 U/L (23-300) 10/03/18 20:59 Procalcitonin 0.42 NG/ML (0.19-0.49) 10/04/18 07:00 Free T4 1.10 ng/dL (0.78-2.19) 10/05/18 06:30 Thyroxine (T4) 5.5 ug/dL (5.5-11.0) 10/05/18 06:30 Free T3 pg/mL 2.77 pg/mL (2.77-5.27) 10/05/18 06:30 TSH 3rd Generation 5.93 mIU/mL (0.46-4.68) H 10/04/18 07:00 Urine Color Straw (YELLOW) 10/04/18 05:00 Urine Appearance Clear (CLEAR) 10/04/18 05:00 Urine pH 6.5 (4.7-8.0) 10/04/18 05:00 Ur Specific [place] <= 1.005 (1.005-1.035) 10/04/18 05:00 Urine Protein Negative mg/dL (<30 mg/dL) 10/04/18 05:00 Urine Glucose (UA) Negative mg/dL (NEGATIVE) 10/04/18 05:00 Urine Ketones Negative mg/dL (NEGATIVE) 10/04/18 05:00 Urine Blood Negative (NEGATIVE) 10/04/18 05:00 Urine Nitrate Negative (NEGATIVE) 10/04/18 05:00 Urine Bilirubin Negative (NEGATIVE) 10/04/18 05:00 Urine Urobilinogen 0.2 E.U./dL (<1 E.U./dL) 10/04/18 05:00 Ur Leukocyte Esterase Negative [place]/uL (NEGATIVE) 10/04/18 05:00 Stool Occult Blood Positive (NEGATIVE) H 10/04/18 14:43 Stool Leukocytes, Qual Positive (NEGATIVE) H 10/04/18 14:30 Proteinase 3 (PR3) <1.0 AI (<1.0) 10/04/18 07:00 Myeloperoxidase Ab <1.0 AI (<1.0) 10/04/18 07:00 HIV 1&2 Ag/Ab, 4th Gen Nonreactive (Nonreactive) 10/05/18 08:10 Blood Type O POSITIVE 10/03/18 21:00 Antibody Screen Negative 10/03/18 21:00 BBK History Checked No verified bt 10/03/18 21:00 Attending/Attestation - Attestation I have personally seen and examined this patient.: Yes I have fully participated in the care of the patient.: Yes I have reviewed all pertinent clinical information, including history, physical exam and plan: Yes Notes (Text): 10/07/18 15:07 attending note; Patient seen and examined with resident. Patient is a 43-year-old male with no significant past medical history is admitted with abdominal pain, diarrhea and blood in stool. CT consistent with acute colitis. Started on IV Rocephin and Flagyl. Patient clinically improved. Currently tolerating diet. GI evaluation appreciated. Patient will be discharge home with ciprofloxacin and Flagyl. Advised to follow up with GI for outpatient colonoscopy. Upon discharge the patient will follow up with PMD of choice per insurance. the diagnosis, treatment option, follow-up plan discussed with patient in detail. 10/07/18 15:08
[2018-10-08 01:03] LABS: ANCA SCREEN NEGATIVE (NEGATIVE)
== END 2018-10-05 15:46 | disposition home or self-care (01) ==
LOC: ED 19:53 → ERH 10-04 00:24 → UNDOADMIN 10-04 00:24 → ERH 10-04 00:27 → 5RNO 10-04 01:32
PROVIDERS: ADMIT Hospitalist; ATTEND Internal Medicine
DX: K52.9 Noninfective gastroenteritis and colitis, unspecified (principal); F41.9 Anxiety disorder, unspecified
CPT/HCPCS: 36415; 74177; 80053; 81003; 83631; 83690; 84145; 84439; 84443; 84481; 85025; 85610; 85651; 85730; 86021; 86140; 86671; 86768; 86850; 86900; 87040; 87045; 87177; 87209; 87389; 89055; 93005; 99285; G0328; G0378; J0696; J2270; J7030; Q9967